=== PATIENT | female | born 1980 | race Caucasian/White ===

== ENCOUNTER 2019-04-16 08:24 | Inpatient (IN) ==
[2019-04-16] MEDS ORDERED: CLINDAMYCIN INJ 900 MG in PREMIX 1 EACH IV ONE (09:10)
[2019-04-16] MEDS ORDERED: FAMOTIDINE 20 MG/2 ML VIAL IV ONE (09:10)
[2019-04-16] MEDS ORDERED: CITRIC ACID/SODIUM CITRATE 30 ML UDCUP PO ONE (09:10)
[2019-04-16] MEDS ORDERED: OXYTOCIN/LR 30 UNIT/1,000 ML BAG IV ONE (09:28)
[2019-04-16] MEDS ORDERED: OXYTOCIN 10 UNIT/ML VIAL IM ONE (09:29)
[2019-04-16] MEDS ORDERED: LACTATED RINGERS 1,000 ML IV SCH ×3 (09:30→13:30)
[2019-04-16 09:42] LABS: Basophils % 0.4 % (0.0-0.8); Eosinophils # 0.2 10*3/uL (0.0-0.87); Eosinophils % 1.7 % (0.00-10.9); Hematocrit 34.2 VOL% (35.7-47.0); Hemoglobin 10.9 GM/DL (12.0-16.0); Immature Granulocytes % 0.6 %; Immature Granulocytes Absolute 0.06 #; Lymphocytes # 1.8 10*3/uL (1.4-4.0); Lymphocytes % 18.9 % (21.3-54.2); Mean Corpuscular HGB Conc 31.9 GM/DL (32-36); Mean Corpuscular Volume 77.7 FL (87-102); Mean Platelet Volume 11.4 FL (9.6-12.0); Monocytes % 6.2 % (1.7-12.7); Neutrophils % 72.2 % (38.7-73.9); Platelet Count 215 T/CUMM (130-400); Red Cell Distribution Width 14.8 % (9.3-17.3); White Blood Count 9.3 T/CUMM (4-12)
[2019-04-16 10:02] LABS: Alanine Aminotransferase 11 U/L (13-56); Albumin 2.3 G/DL (3.4-5.0); Alkaline Phosphatase 223 U/L (45-117); Aspartate Amino Transferase 10 U/L (0-37); Bilirubin,Total < 0.39 MG/DL (0.2-1.0); Blood Urea Nitrogen 11 MG/DL (7-18); Calcium 8.8 MG/DL (8.5-10.1); Estimated Glom Filtration Rate 109 ML/MIN; Glucose 75 MG/DL (74-106); Osmolality,Calculated 274.5 MOS/KG (273-304); Total Protein 6.6 G/DL (6.4-8.3)
[2019-04-16] MEDS ORDERED: miSOPROStoL 200 MCG TABLET ONE (10:26)
[2019-04-16] MEDS ORDERED: TRANEXAMIC ACID 1,000 MG/10 ML VIAL ONE (10:26)
[2019-04-16] MEDS ORDERED: CARBOPROST TROMETHAMINE 250 MCG/ML AMP IM ONE (10:27)
[2019-04-16] MEDS ORDERED: MORPHINE 10 MG/10 ML VIAL ONE (12:23)
[2019-04-16] MEDS ORDERED: BUPIVACAINE MPF 0.5% /EPI 30 ML VIAL ONE (12:23)
[2019-04-16] MEDS ORDERED: BUPIVACAINE SPINAL 0.75% 2 ML AMP SPINAL ONE (12:23)
[2019-04-16] MEDS ORDERED: ONDANSETRON 4 MG/2 ML VIAL ONE (12:24)
[2019-04-16] MEDS ORDERED: propofoL 200 MG/20 ML VIAL IV ONE (12:24)
[2019-04-16] MEDS ORDERED: PHENYLEPHRINE 1 MG/10 ML SYRINGE IV ONE (12:24)
[2019-04-16] MEDS ORDERED: DEXAMETHASONE 4 MG/1 ML VIAL ONE (12:24)
[2019-04-16 12:39] LABS: Cord Arterial Blood HCO3 20.6 MMOL/L
[2019-04-16 12:42] LABS: Cord Venous Blood HCO3 22.1 MMOL/L; Cord Venous Blood PCO2 51.9 MMHG
[2019-04-16 12:43] LABS: Cord Venous Blood PO2 15.6
[2019-04-16 12:58] LABS: Apearance,Urine CLEAR (Clear); Bilirubin,Urine Negative (Negative); Blood, Urine Negative (Negative); Glucose,Urine (UA) Negative (Negative); Ketones,Urine Negative (Negative); Mucus,Urine Occasional /LPF (Occasional); Nitrite,Urine Negative (Negative); Protein,Urine 30 MG/DL; RBC,Urine 1 /HPF (0-4); Squamous Epithelial Cell,Urine Occasional /HPF (0-10); Urine Color Yellow (Yellow); Urine Specific Gravity 1.027 (1.001-1.035); Urine Urobilinogen < 2.0 EU/DL (0.2-1.0); WBC,Urine 1 /HPF (0-6)
[2019-04-16] MEDS ORDERED: OXYTOCIN/LR 20 UNIT/1,000 ML BAG IV ONE (13:22)
[2019-04-16] MEDS ORDERED: ACETAMINOPHEN 325 MG TABLET PO PRN (13:22)
[2019-04-16] MEDS ORDERED: RHO(D) IMMUNE GLOBULIN 300 MCG SYRINGE IM ONE (13:22)
[2019-04-16] MEDS ORDERED: SIMETHICONE CHEW 80 MG TABLET PO PRN (13:22)
[2019-04-16] MEDS ORDERED: ONDANSETRON 4 MG/2 ML VIAL IV PRN (13:22)
[2019-04-16] MEDS ORDERED: ceFAZolin 1,000 MG in SYRINGE 1 EACH IV SCH (13:30)
[2019-04-16] MEDS ORDERED: diphenhydrAMINE 50 MG/1 ML VIAL IV ONE (13:34)
[2019-04-16] MEDS: CLINDAMYCIN INJ 900 MG in PREMIX 1 EACH IV SCH (18:47)
[2019-04-16] MEDS ORDERED: diphenhydrAMINE 50 MG/1 ML VIAL IV PRN (20:06)
[2019-04-16 20:19] LABS: Basophils % 0.2 % (0.0-0.8); Eosinophils % 0.1 % (0.00-10.9); Hematocrit 30.4 VOL% (35.7-47.0); Hemoglobin 9.6 GM/DL (12.0-16.0); Immature Granulocytes % 0.7 %; Immature Granulocytes Absolute 0.13 #; Lymphocytes # 0.8 10*3/uL (1.4-4.0); Lymphocytes % 4.1 % (21.3-54.2); Mean Corpuscular HGB Conc 31.6 GM/DL (32-36); Mean Corpuscular Volume 78.6 FL (87-102); Mean Platelet Volume 11.9 FL (9.6-12.0); Monocytes % 1.7 % (1.7-12.7); Neutrophils % 93.2 % (38.7-73.9); Platelet Count 226 T/CUMM (130-400); Red Blood Count 3.87 MC/CUMM (3.8-5.5); Red Cell Distribution Width 14.7 % (9.3-17.3); White Blood Count 18.7 T/CUMM (4-12)
[2019-04-16] MEDS: DOCUSATE SODIUM 100 MG CAPSULE PO SCH (20:23)
[2019-04-16] MEDS: IBUPROFEN 800 MG TABLET PO PRN (20:30)
[2019-04-16 20:44] LABS: Band Neutrophils 1 % (0-10); Lymphocytes 5 % (20-55); Platelet Estimate Normal; Segmented Neutrophils 94 % (50-85); Total Cells Counted 100
[2019-04-16 20:45] LABS: Hypochromasia Slight; Microcytosis Slight
[2019-04-17] MEDS: CLINDAMYCIN INJ 900 MG in PREMIX 1 EACH IV SCH ×2 (03:02→10:50)
[2019-04-17 05:12] LABS: Basophils % 0.1 % (0.0-0.8); Hematocrit 24.8 VOL% (35.7-47.0); Hemoglobin 7.6 GM/DL (12.0-16.0); Immature Granulocytes % 0.7 %; Immature Granulocytes Absolute 0.13 #; Lymphocytes # 1.5 10*3/uL (1.4-4.0); Mean Corpuscular HGB Conc 30.6 GM/DL (32-36); Mean Platelet Volume 11.7 FL (9.6-12.0); Monocytes % 7.3 % (1.7-12.7); Neutrophils % 83.9 % (38.7-73.9); Platelet Count 206 T/CUMM (130-400); Red Cell Distribution Width 14.8 % (9.3-17.3); White Blood Count 19.1 T/CUMM (4-12)
[2019-04-17] MEDS: MAGNESIUM HYDROXIDE SUSP 30 ML UDCUP PO PRN (07:41)
[2019-04-17] MEDS: MULTIVITAMIN (PRENATAL) TABLET PO SCH ×2 (07:42→17:06)
[2019-04-17] MEDS: DOCUSATE SODIUM 100 MG CAPSULE PO SCH ×3 (07:42→20:21)
[2019-04-17] MEDS: IBUPROFEN 800 MG TABLET PO PRN (12:48)
[2019-04-17] MEDS ORDERED: RHO(D) IMMUNE GLOBULIN 300 MCG SYRINGE IM ONE (16:30)
[2019-04-17] MEDS ORDERED: hydrOXYzine HCL 25 MG/1 ML VIAL IM PRN (16:35)
[2019-04-17] MEDS: METOCLOPRAMIDE 10 MG TABLET PO SCH ×2 (18:12→23:58)
[2019-04-17] MEDS: FERROUS SULFATE 325 MG TABLET PO SCH (20:20)
[2019-04-18] MEDS: METOCLOPRAMIDE 10 MG TABLET PO SCH ×2 (06:26→14:24)
[2019-04-18] MEDS: IBUPROFEN 800 MG TABLET PO PRN (06:48)
[2019-04-18] MEDS: MULTIVITAMIN (PRENATAL) TABLET PO SCH (08:15)
[2019-04-18] MEDS: DOCUSATE SODIUM 100 MG CAPSULE PO SCH (08:18)
[2019-04-18] MEDS: FERROUS SULFATE 325 MG TABLET PO SCH (08:18)
[2019-04-18] MEDS: MAGNESIUM HYDROXIDE SUSP 30 ML UDCUP PO PRN (08:21)
[2019-04-18 09:06] LABS: Hematocrit 22.6 VOL% (35.7-47.0); Hemoglobin 7.1 GM/DL (12.0-16.0)
[2019-04-18] MEDS ORDERED: SODIUM CHLORIDE 0.9% 1,000 ML IV PRN (10:17)
[2019-04-18] MEDS ORDERED: INFLUENZA VIRUS VACCINE 0.5 ML SYRINGE IM ONE ×2 (10:44→17:00)
[2019-04-18] MEDS ORDERED: DIPH/TET/ACEL PERT BOOSTER VACCINE 0.5 ML VIAL IM ONE (16:28)
[2019-04-18 17:51] LABS: Hematocrit 27.1 VOL% (35.7-47.0); Hemoglobin 8.6 GM/DL (12.0-16.0)
[2019-04-18 18:00] VITALS: BP 138/74
== END 2019-04-18 18:50 | disposition home or self-care (01) | DRG 540 ==
LOC: N.LD 08:24 → N.OB 16:18
PROVIDERS: ADMIT Obstetrics & Gynecology; ATTEND Obstetrics & Gynecology
PROC: LDCSECT (ICD-10-PCS; 2019-04-16 10:30)